=== PATIENT | female | born 1955 | race Caucasian/White ===

== ENCOUNTER 2021-05-30 00:10 | Emergency (ER) | payer MEDICARE ==
[~2021-05-30] VITALS: Ht 172.7 cm; Wt 85.0 kg
[2021-05-30] MEDS ORDERED: SODIUM CHLORIDE 0.9% 1,000ML IVBOLUS ONE (02:00)
[2021-05-30] MEDS ORDERED: SODIUM CHLORIDE FLUSH 10ML SYR IVF ONE (02:00)
[2021-05-30 02:01] LABS: BASOPHILS % (AUTO) 0 % (0-1); EOSINOPHILS % (AUTO) 0 % (1-7); LYMPHOCYTES % (AUTO) 12 % (22-44); MEAN CORPUSCULAR HEMOGLOBIN 27.9 pg (27.0-34.8); MEAN CORPUSCULAR HGB CONC 33.2 g/dL (32.4-35.8); MEAN PLATELET VOLUME 7.7 fL (7.4-10.4); MONOCYTES % (AUTO) 6 % (2-9); NEUTROPHILS % (AUTO) 82 % (42-75); PLATELET COUNT 230 x10^3/uL (130-400); RED BLOOD COUNT 4.79 x10^6/uL (3.82-5.3); RED CELL DISTRIBUTION WIDTH 13.9 % (9.6-15.2)
--- NOTE | 2021-05-30 02:01 | NUR ---
SILVERIO FROM HOME. PT STATES SHE FELL GETTING OUT OF BED BECAUSE HER LEGS STOPPED WORKING. DENIES LOC, HEAD INJURY AND DOES NOT TAKE BLOOD THINNERS. [facility] GAVE 500ML FLUIDS. ATTACHED TO MONITORS, VSS, NADN. 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 EKG AT BEDSIDE.
--- NOTE | 2021-05-30 02:04 | NUR ---
GOT PT TO BEDSIDE CAMMODE. PT COULDNT PEE. BACK IN BED, ATTACHED TO MONITORS, VSS. MARILY
[2021-05-30 02:13] LABS: ALANINE AMINOTRANSFERASE 21 U/L (12-78); ANION GAP 8 mmol/L (5-15); CALCIUM 8.4 mg/dL (8.5-10.1); CHLORIDE 104 mmol/L (98-107); CREATININE 0.75 mg/dL (0.55-1.02)
[2021-05-30 02:17] LABS: ALKALINE PHOSPHATASE 101 U/L (45-117); BILIRUBIN,TOTAL 0.6 mg/dL (0.2-1.0); TROPONIN I < 0.015 ng/mL (0.000-0.045)
[2021-05-30] MEDS ORDERED: OMNIPAQUE 350 MG/ML, 100ML BOTTLE ONE (02:56)
--- NOTE | 2021-05-30 03:19 | NUR ---
PT URINATED IN BEDSIDE COMMODE. WAS TOLD NOT TO PUT TOILET PAPER IN COLLECTION CUP. PT STILL PUT TOILET PAPER IN COLLECTION CUP. COTAMINATED SPECIMEN. WILL TRY AGAIN FOR UA SOON. NADN. ATTACHED TO MONITORS. VSS.
--- NOTE | 2021-05-30 03:20 | NUR ---
PT GIVEN HEATED BLANKETS.
[2021-05-30 05:16] VITALS: BP 146/117
--- NOTE | 2021-05-30 05:23 | NUR ---
Patient/Caregiver given discharge instructions and they have confirmed that they understand the instructions. Patient ambulatory with steady gait. NAD, all questions answered appropriately, denies additional needs at this time. No personal belongings left in room after discharge. PT PASSED ROADTEST. PT ABLE TO WALK WITH STEADY GAIT DOWN HALLWAY. PT GIVEN TAXI VOUCHER FOR SAFE DC
== END 2021-05-30 05:24 | disposition home or self-care (01) ==
LOC: ED 03:16
DX: K57.32 Diverticulitis of large intestine without perforation or abscess without bleeding (principal); R10.32 Left lower quadrant pain; E11.9 Type 2 diabetes mellitus without complications
CPT/HCPCS: 36415; 71045; 74177; 80053; 82800; 83690; 84484; 85025; 93005; 96360; 99285; J7030; Q9967